=== PATIENT | male | born 1975 | race African-American/Black ===

== ENCOUNTER 2021-06-26 06:04 | Inpatient (IN) ==
[2021-06-26] MEDS ORDERED: Tdap (Boostrix) Vaccine 0.5 ML SYRINGE IM ONE (06:39)
[2021-06-26 06:50] LABS: Basophils # 0.1 K/mcL (0.0-0.2); Basophils % 0.9 %; Eosinophils % 0.5 %; Hematocrit 45.1 % (37.5-50.1); Hemoglobin 14.9 g/dL (12.9-16.9); Immature Granulocytes % 0.4 % (0-4); Lymphocytes # 1.2 K/mcL (0.6-4.6); Lymphocytes % 21.7 %; Mean Corpuscular Hemoglobin 30.7 pg (28.0-33.3); Mean Platelet Volume 10.5 fL (9.4-12.4); Monocytes # 0.4 K/mcL (0.0-1.3); Monocytes % 6.8 %; Neutrophils # 3.9 K/mcL (1.6-8.9); Platelet Count 209 K/mcL (140-400); Red Blood Count 4.85 M/mcL (4.19-5.50); Red Cell Distribution Width 13.2 % (11.5-14.5); Segmented Neutrophils % 69.7 %; White Blood Count 5.6 K/mcL (4.3-11.1)
[2021-06-26 06:51] LABS: Bilirubin,Urine Negative (Negative); Blood,Urine Negative (Negative); Clarity,Urine Clear (Clear); Color,Urine Light-Yellow (Yellow); Glucose,Urine (UA) Normal (Normal); Ketones,Urine Negative (Negative); Leukocyte Esterase,Urine Negative (Negative); Mucus,Urine Few per lpf (None-Few); Nitrite,Urine Negative (Negative); PH,Urine 8.5 pH Units (5.0-8.0); Protein,Urine 100 mg/dL (Neg-Trace); RBC,Urine 0-3 per hpf (0-3); Squamous Epithelial Cell,Urine Few per hpf (None-Few); WBC,Urine 0-3 per hpf (0-3)
[2021-06-26 06:55] LABS: Estimated Average Glucose 103 mg/dl; Hemoglobin A1C 5.2 %
[2021-06-26 07:12] LABS: Acetaminophen < 10 mcg/mL (10-20); Alanine Aminotransferase 6 Units/L (7-52); Albumin 4.7 g/dL (3.5-5.7); Alkaline Phosphatase 95 Units/L (34-104); Aspartate Amino Transferase 14 Units/L (13-39); BUN/Creatinine Ratio 11 (6-26); Bilirubin,Direct 0.1 mg/dL (0.0-0.2); Bilirubin,Indirect 0.3 mg/dL (0.0-1.0); Bilirubin,Total 0.4 mg/dL (0.3-1.0); Blood Urea Nitrogen 11 mg/dL (6-20); Calcium 9.2 mg/dL (8.6-10.3); Carbon Dioxide 29 mEq/L (23-29); Chloride 106 mEq/L (98-107); Chol/HDL Ratio 2.2 (0-4.9); Cholesterol 172 mg/dL (< 200); Ethanol < 10 mg/dL (Less than 10); Globulin 2.3 g/dL (2.4-3.5); Glucose 102 mg/dL (70-105); HDL Cholesterol 80 mg/dL (40-59); LDL Cholesterol,Calculated 82 mg/dL (< 100); Osmolality,Calculated 282 (280-300); Salicylate < 2.5 mg/dL (15.0-30.0); Sodium 136 mEq/L (136-145); Triglycerides 50 mg/dL (< 150); eGFR For African Americans > 60 (> 60); eGFR For Non-African Americans > 60 (> 60)
[2021-06-26 07:24] LABS: Thyroid Stimulating Hormone 1.036 mcIU/mL (0.340-5.600)
[2021-06-26 08:29] LABS: Amphetamine Screen,Urine Negative ng/mL (Cutoff=1000); Barbiturate Screen,Urine Negative ng/mL (Cutoff=200); Benzodiazepines Screen,Urine Negative ng/mL (Cutoff=200); Cannabinoid Screen,Urine Negative ng/mL (Cutoff = 50); Cocaine Screen,Urine Negative ng/mL (Cutoff= 300); Opiate Screen,Urine Negative ng/mL (Cutoff=300); Phencyclidine Screen,Urine Negative ng/mL (Cutoff=25)
[2021-06-26 10:13] LABS: Influenza A PCR Negative (Negative); Influenza B PCR Negative (Negative); Resp. Syncytial Virus PCR Negative (Negative)
[2021-06-26 10:19] LABS: SARS-CoV-2 by PCR (In House) Negative (Negative)
[2021-06-26] MEDS ORDERED: haloperidoL 5 MG TABLET PO PRN (11:26)
[2021-06-26] MEDS ORDERED: Mag Hydrox/Al Hydrox/Simeth 30 ML UDC PO PRN (11:26)
[2021-06-26] MEDS ORDERED: Haloperidol Lactate 5 MG/ML VIAL IM PRN (11:26)
[2021-06-26] MEDS ORDERED: MOM Conc 10 ML UD.LIQ PO PRN (11:26)
[2021-06-26] MEDS ORDERED: QUEtiapine Fumarate 25 MG TABLET PO PRN (11:26)
[2021-06-26] MEDS ORDERED: *HR* LORazepam 2 MG/ML VIAL IM PRN (11:26)
[2021-06-26] MEDS ORDERED: Acetaminophen 325 MG TABLET PO PRN (11:26)
[2021-06-26] MEDS ORDERED: *HR* LORazepam 1 MG TABLET PO PRN (11:26)
[2021-06-26] MEDS: Nicotine 21 MG PATCH.TD24 TD SCH (13:12)
[2021-06-26] MEDS: hydrOXYzine pamoate 25 MG CAPSULE PO PRN (13:14)
[2021-06-27] MEDS: Nicotine 21 MG PATCH.TD24 TD SCH (10:47)
[2021-06-27] MEDS: hydrOXYzine pamoate 25 MG CAPSULE PO PRN (21:01)
[2021-06-27] MEDS: haloperidoL 5 MG TABLET PO SCH (21:02)
[2021-06-28] MEDS: Nicotine 21 MG PATCH.TD24 TD SCH (11:04)
[2021-06-28] MEDS: haloperidoL 5 MG TABLET PO SCH ×2 (11:25→20:37)
[2021-06-28] MEDS: hydrOXYzine pamoate 25 MG CAPSULE PO PRN (20:38)
[2021-06-29] MEDS: Nicotine 21 MG PATCH.TD24 TD SCH (09:52)
[2021-06-29] MEDS ORDERED: traZODone 50 MG TABLET PO PRN (09:56)
[2021-06-29] MEDS: haloperidoL 5 MG TABLET PO SCH (20:01)
[2021-06-29] MEDS: hydrOXYzine pamoate 25 MG CAPSULE PO PRN (20:01)
[2021-06-30] MEDS: Nicotine 21 MG PATCH.TD24 TD SCH (09:55)
[2021-06-30] MEDS ORDERED: Ibuprofen 800 MG TABLET PO PRN (10:52)
[2021-06-30] MEDS: haloperidoL 5 MG TABLET PO SCH (20:29)
[2021-07-01] MEDS: Nicotine 21 MG PATCH.TD24 TD SCH (09:32)
[2021-07-01] MEDS: haloperidoL 5 MG TABLET PO SCH (20:33)
[2021-07-02] MEDS: Nicotine 21 MG PATCH.TD24 TD SCH (09:54)
[2021-07-02 21:14] VITALS: TEMP 97.5
[2021-07-02] MEDS: haloperidoL 5 MG TABLET PO SCH (21:45)
[2021-07-03] MEDS: Nicotine 21 MG PATCH.TD24 TD SCH (09:29)
[2021-07-03 09:41] VITALS: BP 131/82; PULSE 60; O2SAT 97
== END 2021-07-03 11:15 | disposition home or self-care (01) | DRG 885 ==
LOC: EMEROOARM 06:04 → 1ANU 11:08
PROVIDERS: ADMIT Psychiatry & Neurology Psychiatry; ATTEND Psychiatry & Neurology Psychiatry